=== PATIENT | female | born 1960 | race Caucasian/White ===

== ENCOUNTER → 2024-02-01 12:54 | Outpatient (REF) | payer MEDICARE, SELFPAY | LOC: HWRAD 12:54 | PROVIDERS: ATTENDING PHYSICIAN Family Medicine | DX: R60.0 Localized edema (principal); I87.2 Venous insufficiency (chronic) (peripheral) | CPT/HCPCS: 93970 ==

== ENCOUNTER → 2024-04-19 09:48 | Outpatient (REF) | payer MEDICARE, SELFPAY | LOC: RAD 09:48 | PROVIDERS: ATTENDING PHYSICIAN Family Medicine | DX: I87.2 Venous insufficiency (chronic) (peripheral) (principal) | CPT/HCPCS: 93978 ==

== ENCOUNTER → 2024-05-30 14:01 | Outpatient (REF) | payer MEDICARE, SELFPAY | LOC: RCS 14:01 | PROVIDERS: ATTENDING PHYSICIAN Family Medicine | DX: I10 Essential (primary) hypertension (principal); R01.1 Cardiac murmur, unspecified | CPT/HCPCS: 93005; 93306 ==

== ENCOUNTER → 2024-06-04 11:19 | Outpatient (REF) | payer MEDICARE, SELFPAY | LOC: RAD 11:19 | PROVIDERS: ATTENDING PHYSICIAN Nurse Practitioner Family; FAMILY PHYSICIAN Family Medicine | DX: R10.84 Generalized abdominal pain (principal) | CPT/HCPCS: 74176 ==

== ENCOUNTER 2024-06-06 08:47 | Emergency (ER) | payer MEDICARE, SELFPAY ==
[2024-06-06 08:54] VITALS: BP 121/77
[2024-06-06 09:18] VITALS: BMI 35.1
[2024-06-06] MEDS: NSS 1000 IV (09:50)
[2024-06-06 09:53] LABS: % Basophils 0.3 % (0-2); % Eosinophils 1.4 % (0-6); % Immature Granulocytes 0.2 % (0-0.5); % Lymphocytes 22.7 % (20.5-51.1); % Neutrophils 67.4 % (42.2-75.2); Absolute Eosinophils 0.1 10^3/uL (0-0.7); Absolute Lymphocytes 2.2 10^3/uL (1.2-3.4); Absolute Monocytes 0.8 10^3/uL (0.1-0.6); Absolute Neutrophils 6.6 10^3/uL (1.4-6.5); Hematocrit 43.8 % (37.0-47.0); Hemoglobin 14.9 g/dL (12.0-16.0); Mean Corpuscular Hgb 26.5 pg (27.0-31.0); Mean Corpuscular Volume 77.9 fL (81.0-99.0); Mean Platelet Volume 9.6 fL (7.4-10.4); Nucleated Red Blood Cells % 0 %; Platelet Count 249 10^3/uL (130-400); Red Blood Cell Count 5.62 10^6/uL (4.20-5.40); Red Cell Dist. Width 15.8 % (11.5-14.5); White Blood Cell Count 9.8 10^3/uL (4.8-10.8)
--- NOTE | 2024-06-06 09:53 | ED.GENMED ---
History of Present Illness
General
Chief Complaint: Abdominal Pain
Source: patient
Exam Limitations: none
Time Seen by Provider: 06/06/24 09:09
Nursing documentation reviewed up to this point in time: agreed with
History of Present Illness
History of Present Illness:
64 y/o F with h/o NIDDM, recently started mountjaro, spinal stenosis on chronic pain meds, HTN
here with n/v/d x 5 days
started actually with cough 2 weeks ago
never had fever
granddaughter sick with cold yspmtoms too
pt tested neg for covid
she dealt with the cough for awhile but then started having nausea and diarrhea with crampy abd pain with oral intake
pt says her stools are just watery and it is after any time she eats/drinks
she doesn't wish to eat/drink becuase she has to run to the bathroom
liquid is green or orange
no blood
no significant severe abd pain
nausea
not really havin gvomiting, just occasionally
3 days ago went to PCP and had outpatient order for CT a/p noncon
deanna casanova didn't sohw anything
she had dysuria and was treated with macrobid for uti but hasn't been taking becaus ewhen she does, she has to have diarrhea
no hemoptyiss, sob,
Past History
Past History
ED Past Medical History: HTN, NIDDM and Other (spinal stenosis)
ED Past Surgical History: Cholecystectomy, Gynecological, Orthopedic (spinal fusion) and Tonsilectomy
Phy Exam
Physical Exam
Physical Exam:
GENERAL: Alert , in no apparent distress
EYE: pupils equal and reactive
NECK: Supple
ENT: o/p clr, dry mouth
CARDIAC: Regular rate and rhythm .
LUNGS: Moderate cough, no respiratory distress, crackles in bilateral lower lobes
ABDOMEN: Soft, mild left sided and epigastric tenderness, no r/g, no cvat, normal bowel sounds
NEUROLOGICAL: Alert and oriented, no focal neuro deficits
SKIN: Warm and dry, skin intact.
MUSCULOSKELETAL: No edema, well perfused. neg giuseppe's sign
PSYCH: Normal and appropriate interaction.
Course
Orders/Labs/Results
Orders:
Orders
06/06/24 09:35
Basic Metabolic Panel Urgent
Complete Blood Count/With Diff Urgent
Lipase Urgent
06/06/24 09:44
0.9% Sodium Chloride 1000 ml [Nss] 1,000 ml IV BOLUS
CR Chest - 2 Views Urgent
Comment:
Reason For Exam: cough 2 weeks
06/06/24 09:52
NT-proBNP Urgent
06/06/24 11:20
Urinalysis Reflex To Culture Urgent
Date Specimen was Collected: 06/06/24
Time Specimen was Collected: 11:19
Urine Microscopic Reflex Cult Urgent
06/06/24 11:22
Hydrocodone 5/APAP 325 [[place] 5/325] 1 tablet PO NOW STA
06/06/24 12:05
CT Chest/abd/pel W Iv Cont Urgent
Reason For Exam: cough ,fever, weight loss, order combined
06/06/24 13:12
Potassium Urgent
06/06/24 14:01
Dexamethasone Sod Phosphate [Decadron] 6 mg IV NOW STA
Abnormal Lab Results
06/06/24 06/06/24 06/06/24
09:35 11:20 13:12
RBC 5.62 H 10^6/uL
(4.20-5.40)
MCV 77.9 L fL
(81.0-99.0)
MCH 26.5 L pg
(27.0-31.0)
RDW 15.8 H %
(11.5-14.5)
Absolute Neuts (auto) 6.6 H 10^3/uL
(1.4-6.5)
Absolute Monos (auto) 0.8 H 10^3/uL
(0.1-0.6)
Potassium 3.4 L mmol/L
(3.5-5.1)
BUN 22 H mg/dl
(7-17)
Glucose 126 H mg/dl
(70-99)
Urine Ketones 3+ A
(Negative)
Urine Bilirubin 1+ A
(Negative)
Leukocyte Esterase Rfl Trace A
(Negative)
Urine Bacteria (Reflex) Few A
(Negative)
06/06/24 09:35
06/06/24 13:12
Vital Signs
Initial and Last Documented VS:
Initial Vital Signs
Temp Pulse Resp BP Pulse Ox
99.5 F 97 18 121/77 96
06/06/24 08:54 06/06/24 08:54 06/06/24 08:54 06/06/24 08:54 06/06/24 08:54
Last Documented Vital Signs
Temp Pulse Resp BP Pulse Ox
99.5 F 88 16 129/99 95
06/06/24 08:54 06/06/24 13:45 06/06/24 13:45 06/06/24 13:11 06/06/24 13:45
MDM/Problems Addressed
Differential Diagnosis Includes:
colitis, infectious diarrhea, covid, pneumonia
MDM/Problems Addressed:
64 y/o F with h/o chornic ba ckpain, newly inc dose of moutnjaro, niddm
here with 5 days nauesa/dairrhea and abdomianl pain
also has had cough x 2 weeks thoguht it was viral
the cough is not any better
no fever
had outpatietn ct a few days ago hwich was done without contrast and neg
pt has not had any stool studies
feels dehydrated
looks overall nontoxic
mild tendenres epigastric region
lungs sound rales B/L but cxr indep reviewed, no ifilrtate
stool studies requested
will give IVF and repeat CT with IV contrast
CT findings discussed with the patient, some incidentals but there is no pneumonia or intra-abdominal concerns to explain the patient's symptoms. I suspect she has a viral syndrome. She was unable to provide a stool sample. I am hesitant on
giving her antibiotics as its only been 5 days of diarrhea. She also seems to have improved symptoms today. But we did discuss holding onto a prescription for Levaquin in case she has worsening symptoms again, this would also potentially treat a
pneumonia that is early and not visible on the chest CT. Patient does some crackles in her bases.
Will give an inhaler and give 1 dose of steroids here prior to discharge. Return precautions given
*Critical Care Note
Total Time (30-74mins, 75-104mins- exclusive of procedures): Not Applicable
ED Attending Note
-
Portions of this chart may have been created with voice recognition software.� Occasional wrong word or��sound alike� substitutions may have occurred due to the inherent limitations of voice recognition software.
Discharge Plan
Departure
Patient Disposition: Home (Routine Discharge)
Date of Disposition: 06/06/24
Time of Disposition: 14:01
Patient with high blood pressure during this ER visit?: No
Condition: Fair
Covid-19: Not Applicable
Discharge Problem:
Bronchitis, Diarrhea
Instructions: [place] Diet, Bronchitis, Adult ED
Prescriptions:
New
levofloxacin 500 mg tablet
500 mg PO DAILY Qty: 5 0RF
albuterol sulfate 90 mcg/actuation HFA aerosol inhaler
2 puff inhalation Q6H PRN (Reason: shortness of breath or wheezing) Qty: 6.7 0RF
No Action
prednisone 50 mg tablet
50 mg PO DAILY Qty: 5 0RF
albuterol sulfate 90 mcg/actuation HFA aerosol inhaler
2 puff inhalation Q6H PRN (Reason: shortness of breath or wheezing) Qty: 8.5 0RF
Referrals:
Thien Elkins DO [Family Provider] -
Activity Restrictions/Additional Instructions:
Your workup today is pretty reassuring. Stay hydrated. Use the brat diet, bananas, rice, applesauce, toast to help with your stool. If you continue to have significant diarrhea you ought to have the stool studies done. Please drop them off at
the outpatient lab with the prescription. And then you can start the antibiotic Levaquin once a day for 5 days. This is an antibiotic that if you did any physical activity or strenuous exercise you could potentially rupture of tendon. We tell
patients who are on Levaquin to avoid heavy lifting or exercise for now. Regarding your bronchitis, this could be viral. Use albuterol 2 puffs every 4-6 hours for your cough. You were also given a dose of IV steroids.
If your cough gets worse you could also start the Levaquin for that reason. But I believe this is viral. He had no signs of pneumonia. Please follow-up with your doctor on Monday. Return for any concerns like bloody diarrhea, severe pain, high
fevers, trouble breathing etc.
Interventions
Interventions:
*Risk Screen - Suicide Last Done: 06/06/24 08:54
*General Assessment Last Done: 06/06/24 08:54
*Neglect/Abuse Screening Last Done: 06/06/24 08:54
ED- Fall Risk Assessment Last Done: 06/06/24 09:18
*ED COVID-19 Vaccine History Last Done: 06/06/24 09:18
*Nursing Disposition Last Done: 06/06/24 15:29
ZW-Tnrdqb-Jregafzeua Assessment Last Done: 06/06/24 09:18
Discharge Date and Time
Discharge Date/Time: 06/06/24 15:30
Print Language: TAJIK
[2024-06-06 10:23] LABS: NT-proBNP < 20.0 pg/ml
[2024-06-06 10:39] LABS: Blood Urea Nitrogen 22 mg/dl (7-17); Calcium 8.9 mg/dl (8.4-10.2); Carbon Dioxide 29 mmol/L (22-30); Chloride 101 mmol/L (98-107); Estimated Creatinine Clearance 102 ml/min; Glucose 126 mg/dl (70-99); Lipase 54 U/L (23-300); Sodium 137 mmol/L (135-145); eGFR > 60.00
[2024-06-06 11:20] VITALS: BP 119/89
[2024-06-06] MEDS: NORCO 5/325 1 TABLET PO (11:31)
[2024-06-06 12:00] VITALS: BP 133/73
[2024-06-06 12:18] LABS: Urine Albumin Trace (Neg - Trace); Urine Bilirubin 1+ (Negative); Urine Character Clear (Clear); Urine Color Yellow; Urine Glucose Negative (Negative); Urine Ketone 3+ (Negative); Urine Leukocyte Trace (Negative); Urine Nitrite Negative (Negative); Urine Occult Blood Negative (Negative); Urine Urobilinogen Negative (Neg - 1+)
[2024-06-06 12:32] LABS: Urine Bacteria Few (Negative); Urine Mucus Moderate; Urine Red Blood Cell 0-2 /HPF (0-2); Urine Squamous Cell 16-20 /LPF (Few)
[2024-06-06 13:11] VITALS: BP 129/99
[2024-06-06 13:34] LABS: Potassium 3.4 mmol/L (3.5-5.1)
[2024-06-06] MEDS: DECADRON 6 MG IV (15:21)
== END 2024-06-06 15:30 | disposition home or self-care (01) ==
LOC: EMR 08:47
PROVIDERS: Physician Assistant; EMERGENCY PHYSICIAN Student in an Organized Health Care Education/Training Program; FAMILY PHYSICIAN Family Medicine
DX: J40 Bronchitis, not specified as acute or chronic (principal); R19.7 Diarrhea, unspecified; E11.9 Type 2 diabetes mellitus without complications; I10 Essential (primary) hypertension; Z90.49 Acquired absence of other specified parts of digestive tract; Z98.1 Arthrodesis status; Z79.85 Long-term (current) use of injectable non-insulin antidiabetic drugs
CPT/HCPCS: 96374; 96361; 99284; 71046; 71260; 74177; 80048; 81003; 81015; 83690; 83880; 84132; 85025; Q9967

== ENCOUNTER → 2024-07-26 13:02 | Outpatient (REF) | payer MEDICARE, SELFPAY | LOC: HWWDC 13:02 | PROVIDERS: ATTENDING PHYSICIAN Obstetrics & Gynecology; FAMILY PHYSICIAN Family Medicine | DX: Z12.31 Encounter for screening mammogram for malignant neoplasm of breast (principal); Z13.820 Encounter for screening for osteoporosis; Z78.0 Asymptomatic menopausal state; M85.88 Other specified disorders of bone density and structure, other site | CPT/HCPCS: 77063; 77067; 77080 ==

== ENCOUNTER 2025-08-11 06:14 | Day surgery (SDC) | payer MEDICARE, SELFPAY ==
--- NOTE | 2025-07-22 13:24 | CM ---
Addendum entered by Shanda Ramos RN 08/07/25 15:41:
Demographics: confirmed
Living situation: lives with
Support Person Post Operatively:
History of
VN: no
SNF: No
Outpatient: [facility] 08/13/2025
Has patient purchased required equipment: yes, walker
PCP: Salazar Thurman
Pharmacy: [facility]
Post Operative Discharge Plan: Home with outpatient PT.
Addendum entered by Shanda Ramos RN 08/07/25 13:48:
CM left message for orthopedic IA. CM reviewed orthopedic PA notes. Patient confirmed outpatient PT appointment at [facility].
Addendum entered by Shanda Ramos RN 07/23/25 11:43:
CM returned patient call for orthopedic IA.
Original Note:
CM reviewed medical records. CM left message for orthopedic IA.
[2025-07-24 13:41] VITALS: BMI 38.6
[2025-07-24 14:32] VITALS: BMI 38.6
[2025-07-24 14:59] LABS: Hematocrit 42.9 % (37.0-47.0); Hemoglobin 14.3 g/dL (12.0-16.0); Mean Corp Hgb Conc. 33.3 g/dL (33.0-37.0); Mean Corpuscular Volume 84.8 fL (81.0-99.0); Platelet Count 193 10^3/uL (130-400); Red Cell Dist. Width 15.6 % (11.5-14.5)
[2025-07-24 15:29] LABS: ALT (SGPT) 39 U/L (0-35); AST (SGOT) 30 U/L (14-36); Albumin 4.5 g/dl (3.5-5.0); Alkaline Phosphatase 86 U/L (38-126); Blood Urea Nitrogen 13 mg/dl (7-17); Calcium 9.5 mg/dl (8.4-10.2); Carbon Dioxide 35 mmol/L (22-30); Chloride 95 mmol/L (98-107); Estimated Creatinine Clearance 91 ml/min; Glucose 122 mg/dl (70-99); Potassium 4.5 mmol/L (3.5-5.1); Sodium 140 mmol/L (135-145); Total Protein 7.4 g/dl (6.3-8.2); eGFR > 60.00
[2025-07-25 12:38] LABS: Glycohemoglobin (HgbA1c) 7.1 % (4.0-5.9)
[2025-08-11] VITALS (13 sets, daily range): BP systolic 100–150; BP diastolic 62–88; PULSE 71; O2SAT 92; BMI 38.6
[2025-08-11] MEDS: NORMOSOL-R/PLASMALYTE-A 1000 IV ×2 (12:04→18:19)
[2025-08-11 12:08] LABS: Glucose - Point of Care 126 mg/dl (70-99)
[2025-08-11] MEDS: TYLENOL 650 MG PO (12:25)
[2025-08-11] MEDS: CELEBREX 200 MG PO (12:25)
--- NOTE | 2025-08-11 14:35 | W.PN.UPDATE ---
Update Note
Progress Note Update
R knee OA s/p R TKA w/ Dr Aquino 08/11/25
DVT prophylaxis - ASA, b/l venous foot pumps
HTN - + parameters - monitor BP
Chronic LA - monitor O2
- IS
NIDDM, A1c 7.1 - monitor BS
- Resume home meds
- Add SSI AC, low dose Lantus HS to accommodate for potential post-surgical BS elevations
- Diabetic, carb controlled diet
- Would benefit from prophylactic abx upon d/c
GERD - continue PPI therapy
Ambulatory dysfunction - on fall precautions
Sciatica - continue Gabapentin
Chronic pain syndrome with opioid dependence - will continue Hysingla ER (pt advised to bring in from home)
- Will add [place] 10 mg q4hprn for mod pain, 15 q4hprn for severe pain
- Continue Gabapentin and Baclofen BID
- Add Celebrex
- Per Dr. Galan (pain mgmt) -> continue current [place] dose upon d/c. Was recently adjusted in prep for surgery
- Monitor pain and adjust meds as needed
Iron deficiency anemia - pre-op hgb stable - non-invasive hgb in AM
Hypercholesterolemia
Coronary artery calcifications
Mild aortic regurgitation
Chronic venous insufficiency with associated edema
Fatty liver disease with mildly elevated transaminase
Migraines
Restless leg syndrome
Multilevel degenerative disc disease with stenosis
Osteopenia
Obesity, BMI 38.5
History of tobacco abuse
[2025-08-11 16:05] LABS: Glucose - Point of Care 108 mg/dl (70-99)
[2025-08-11] MEDS: DILAUDID 0.5 MG IV (16:55)
[2025-08-11] MEDS: NORCO 5/325 1 TABLET PO (17:15)
[2025-08-11] MEDS: NOVOLOG FLEXPEN-MODERATE RESISTANCE SC ×2 (18:06→18:19)
[2025-08-11] MEDS: ASPIRIN 325 MG PO (18:18)
[2025-08-11 18:19] LABS: Glucose - Point of Care 110 mg/dl (70-99)
[2025-08-11] MEDS: PROTONIX 20 MG PO (18:19)
[2025-08-11] MEDS: NEURONTIN 600 MG PO ×2 (18:19→22:24)
[2025-08-11] MEDS: ELAVIL 50 MG PO (18:19)
[2025-08-11] MEDS: FEOSOL 325 MG PO (18:19)
[2025-08-11] MEDS: GLUCOPHAGE 850 MG PO (18:19)
--- NOTE | 2025-08-11 18:22 | PTCARENOTE ---
Pt arrived to [facility] s/p R TKA. Right knee dressing with scant sanguineous drainage. Thigh high teds/ foot pumps on pt. WBAT. Pt ambulated to bathroom w/o incident with a RW. Admission questions answered. Bed locked and in lowest position. Care
ongoing.
[2025-08-11] MEDS: NORCO 7.5/325 2 TABLET PO (18:26)
[2025-08-11] MEDS: SENOKOT 17.2 MG PO (20:28)
[2025-08-11] MEDS: LIORESAL 10 MG PO (20:28)
[2025-08-11] MEDS: BACTROBAN 2% OINTMENT 1 APPLIC NASAL (20:28)
[2025-08-11] MEDS: COLACE 100 MG PO (20:28)
[2025-08-11] MEDS: FLORASTOR 250 MG PO (20:28)
[2025-08-11] MEDS: TORADOL 15 MG IV (20:35)
[2025-08-11 21:38] LABS: Glucose - Point of Care 166 mg/dl (70-99)
[2025-08-11] MEDS: ANCEF 5 IV (22:24)
[2025-08-11] MEDS: LANTUS 0.05 UNITS SC (22:24)
[2025-08-12 03:34] VITALS: BP 126/66
[2025-08-12] MEDS: ANCEF 5 IV (06:07)
[2025-08-12] MEDS: NORCO 7.5/325 2 TABLET PO ×2 (06:11→10:37)
[2025-08-12 07:00] VITALS: BP 136/70
[2025-08-12 07:43] LABS: Glucose - Point of Care 176 mg/dl (70-99)
[2025-08-12 08:03] LABS: Hematocrit 40.8 % (37.0-47.0); Hemoglobin 13.4 g/dL (12.0-16.0)
[2025-08-12] MEDS: NOVOLOG FLEXPEN-MODERATE RESISTANCE 1 UNITS SC (08:11)
[2025-08-12] MEDS: NEURONTIN 600 MG PO (08:12)
[2025-08-12] MEDS: LIPITOR 10 MG PO (08:12)
[2025-08-12] MEDS: COLACE 100 MG PO (08:12)
[2025-08-12] MEDS: ASPIRIN 325 MG PO (08:13)
[2025-08-12] MEDS: CELEBREX 200 MG PO (08:13)
[2025-08-12] MEDS: FLORASTOR 250 MG PO (08:13)
[2025-08-12] MEDS: LIORESAL 10 MG PO (08:13)
[2025-08-12] MEDS: GLUCOPHAGE 850 MG PO (08:13)
[2025-08-12] MEDS: PROTONIX 20 MG PO (08:13)
[2025-08-12] MEDS: SENOKOT 17.2 MG PO (08:13)
[2025-08-12] MEDS: BACTROBAN 2% OINTMENT 1 APPLIC NASAL (08:14)
[2025-08-12] MEDS: NON-FORMULARY ITEM 30 MG PO (08:15)
--- NOTE | 2025-08-12 10:22 | CM ---
Chart reviewed and case assembler met with patient and spouse at bedside. Patient is for discharge to home when stable possibly today and follow up with outpatient therapies with [facility] starting date 08/13/25, spouse will provided transportation.
Plan; Home with spouse and outpatient therapies with [facility], starting 08/13, spouse to transport.
--- NOTE | 2025-08-12 10:25 | W.PN.ORTHO ---
Today's Communication / Plan
-
Await PT and OT recs.
D/c later today if remaining clinically stable.
Assessment
.
Distal Motor Intact: Yes
Dressing:
Scant areas of old incisional bleeding. Dressing otherwise C/D/I.
Assessment:
R knee OA s/p R TKA w/ Dr Aquino 08/11/25
DVT prophylaxis - ASA, b/l venous foot pumps
HTN - + parameters - BPs overall stable
Chronic LA - O2 stable on RA
- IS
NIDDM, A1c 7.1 - BS readings overall stable w/ measures below
- Resumed home meds
- Added SSI AC, low dose Lantus HS to accommodate for potential post-surgical BS elevations
- Diabetic, carb controlled diet
- Would benefit from prophylactic abx upon d/c
GERD - continue PPI therapy
Ambulatory dysfunction - on fall precautions
Sciatica - continue Gabapentin but at TID dosing
Chronic pain syndrome with opioid dependence - will continue Hysingla ER (pt advised to bring in from home)
- Will add [place] 10 mg q4hprn for mod pain, 15 q4hprn for severe pain during admission
- Continue Gabapentin and Baclofen BID
- Added Celebrex
- Per Dr. Galan (pain mgmt) -> continue current [place] dose upon d/c. Was recently adjusted in prep for surgery
- Monitor pain and adjust meds as needed
Iron deficiency anemia - pre-op hgb stable - non-invasive hgb 13.4 POD 1
Hypercholesterolemia
Coronary artery calcifications
Mild aortic regurgitation
Chronic venous insufficiency with associated edema
Fatty liver disease with mildly elevated transaminase
Migraines
Restless leg syndrome
Multilevel degenerative disc disease with stenosis
Osteopenia
Obesity, BMI 38.5
History of tobacco abuse
Plan
.
Surgery / Date: R TKA w/ Dr Aquino 08/11/25
DVT Prophylaxis: Aspirin
Activity:
Out of bed.
PT/OT
Discharge Plan: Home w/ Outpatient PT
Subjective
.
.:
Patient examined resting in her chair.
Reports pain overnight; however, current pain 12/02 when asked. H/o chronic pain w/ opioid dependence.
Denies any new significant complaints.
Eager for potential d/c today.
Vital Signs and Labs
.
Vital Signs and Labs:
Lab Results
08/12/25 07:05
07/24/25 13:01
Temp Pulse Resp BP Pulse Ox
98.7 F 98 17 136/70 89
08/12/25 07:00 08/12/25 07:00 08/12/25 07:00 08/12/25 07:00 08/12/25 07:00
Physical Exam
-
HEENT: No pallor, cyanosis, or jaundice. Throat clear.
NECK: Supple. No JVD.
RESPIRATORY: Lungs clear to auscultation.
CVS: S1, S2 normal. RRR.�
ABDOMEN: Soft, non-tender. No distension. Obese.
EXTREMITIES: Expected post-surgical R knee edema. Strength equal, no calf pain with palpation/dorsiflexion. Calves soft.
MILITARY PROFESSIONAL: AOx3. No focal deficits. nutrition consultant grossly intact
--- NOTE | 2025-08-12 10:36 | W.DS.TRANS ---
DC Summary - [employer] Supervisor
-
Discharge Instructions:
Sleep Apnea Risk Intermediate
Discharge Diagnosis/Procedures R knee OA s/p R TKA w/ Dr Aquino 08/11/25
Diet Diabetic, Carb Controlled
Additional Diets Adequate hydration, minimize opioids, and wear
TEDs stockings to prevent low blood pressure/
dizziness.
Activity As tolerated,With Walker
Driving Restrictions Not until seen by your Dr
Bathing Restrictions OK to Shower
Other Services PT
Wound Care Dressing to be removed 1 week post-surgery.
[place] to be removed at 2 week follow-up with
surgeon's office.
Instructions:
Stand-Alone Forms: Total Hip/Knee Replacement D/C
Changes to Home Medications: Yes
Discharge Medications:
DC Medications w/original date entered in Medium
amitriptyline 50 mg tablet 50 mg PO QPM 07/22/25
atorvastatin 10 mg tablet 10 mg PO DAILY 07/22/25
baclofen 10 mg tablet 10 mg PO BID 07/22/25
ferrous sulfate 137 mg (45 mg iron) tablet,extended release (Slow Fe) 137 mg PO Q48H 07/22/25
hydrocodone bitartrate 30 mg tablet,crush resist,extended rel. 24hr (Hysingla ER) 30 mg PO DAILY 07/22/25
metformin 850 mg tablet 850 mg PO BID 07/22/25
omeprazole magnesium 20 mg tablet,delayed release (Prilosec OTC) 20 mg PO DAILY 07/22/25
mupirocin 2 % topical ointment 1 applic intranasal BID #1 tube 07/24/25
celecoxib 200 mg capsule (Celebrex) 200 mg PO DAILY #14 caps 08/07/25
doxycycline monohydrate 100 mg capsule 100 mg PO BID #14 caps 08/07/25
ondansetron HCl 4 mg tablet 4 mg PO Q6H PRN nausea and vomiting #30 tabs 08/07/25
Saccharomyces boulardii 250 mg capsule (Florastor) 250 mg PO BID #14 caps 08/12/25
acetaminophen 325 mg tablet 650 mg (2 x 325 mg) PO Q6H PRN mild pain #60 tabs 08/12/25
aspirin 325 mg tablet 325 mg PO DAILY #30 tabs 08/12/25
docusate sodium 100 mg capsule 100 mg PO BID #30 caps 08/12/25
gabapentin 300 mg capsule 600 mg (2 x 300 mg) PO TID #30 caps 08/12/25
hydrochlorothiazide 25 mg tablet 25 mg PO DAILY #1 tab 08/12/25
hydrocodone 10 mg-acetaminophen 325 mg tablet 1 tab PO Q6H PRN severe pain #120 tabs 08/12/25
magnesium hydroxide 400 mg/5 mL oral suspension (Milk of Magnesia) 30 ml PO HS PRN constipation #3,780 mL 08/12/25
sennosides 8.6 mg tablet (Terra-kaity) 17.2 mg (2 x 8.6 mg) PO BID #30 tabs 08/12/25
Home Medication Changes
celecoxib 200 mg capsule (Celebrex) 200 mg PO DAILY #14 caps 08/07/25
doxycycline monohydrate 100 mg capsule 100 mg PO BID #14 caps 08/07/25
ondansetron HCl 4 mg tablet 4 mg PO Q6H PRN nausea and vomiting #30 tabs 08/07/25
Saccharomyces boulardii 250 mg capsule (Florastor) 250 mg PO BID #14 caps 08/12/25
acetaminophen 325 mg tablet 650 mg (2 x 325 mg) PO Q6H PRN mild pain #60 tabs 08/12/25
aspirin 325 mg tablet 325 mg PO DAILY #30 tabs 08/12/25
docusate sodium 100 mg capsule 100 mg PO BID #30 caps 08/12/25
gabapentin 300 mg capsule 600 mg (2 x 300 mg) PO TID #30 caps 08/12/25
hydrocodone 10 mg-acetaminophen 325 mg tablet 1 tab PO Q6H PRN severe pain #120 tabs 08/12/25
magnesium hydroxide 400 mg/5 mL oral suspension (Milk of Magnesia) 30 ml PO HS PRN constipation #3,780 mL 08/12/25
sennosides 8.6 mg tablet (Terra-kaity) 17.2 mg (2 x 8.6 mg) PO BID #30 tabs 08/12/25
Pending Results: No
[2025-08-12 11:00] VITALS: BP 129/68
[2025-08-12 12:00] LABS: Glucose - Point of Care 134 mg/dl (70-99)
[2025-08-12] MEDS: NOVOLOG FLEXPEN-MODERATE RESISTANCE SC (12:56)
--- NOTE | 2025-08-12 13:00 | PTCARENOTE ---
Patient discharge with her own med-Hysingla 12 tablets returned to patient. Green slip sent to pharmacy.
[2025-08-12 13:03] VITALS: BP 129/68; O2SAT 95
--- NOTE | 2025-08-12 13:08 | PTCARENOTE ---
Patient OOB ambulating in room with supervision and walker. Patient voiding without difficulty and tolerating 1800 ADA diet. [place] given for 6/10 pain with relief. Spouse at bedside. Patient going home with commode.
== END 2025-08-12 13:42 | disposition home or self-care (01) ==
LOC: SDS 06:14
PROVIDERS: ATTENDING PHYSICIAN Specialist; FAMILY PHYSICIAN Family Medicine; OTHER PHYSICIAN Internal Medicine Cardiovascular Disease; OTHER PHYSICIAN Physician Assistant
DX: M17.11 Unilateral primary osteoarthritis, right knee (principal); Z68.38 Body mass index [BMI] 38.0-38.9, adult; E66.9 Obesity, unspecified; I10 Essential (primary) hypertension; E11.9 Type 2 diabetes mellitus without complications; F11.20 Opioid dependence, uncomplicated; G89.4 Chronic pain syndrome; D50.9 Iron deficiency anemia, unspecified
CPT/HCPCS: 27447; 36415; 73560; 80053; 82962; 83036; 85014; 85018; 85027; 87070; 97110; 97116; 97163; 97166; 97535; C1713; C1776